=== PATIENT | female | born 1990 | race Hispanic/Latino ===

== ENCOUNTER 2024-06-01 20:03 | Emergency (ER) | payer OTHER ==
[2024-06-01] MEDS ORDERED: DiphenhydrAMINE HCL 50 MG/ML SDV IV ONE (20:15)
[2024-06-01] MEDS ORDERED: SODIUM CHLORIDE 0.9% 1,000 ML IV ONE (20:15)
[2024-06-01 20:19] VITALS: BP 132/74
[2024-06-01 20:30] VITALS: BP 144/84
[2024-06-01 20:36] LABS: BASO% 0.8 % (0-3); EOS% 2.2 % (0-8); HEMATOCRIT 33.7 % (37.0-47.0); HEMOGLOBIN 11.2 g/dl (12.0-16.0); IMMATURE GRANULOCYTES 0.5 % (0.0-5.0); LYMPH% 34.2 % (15-41); MEAN CELL VOLUME 87.8 fL CALC (80.0-100.0); MEAN CORPUSCULAR HGB 29.2 pG CALC (26.0-32.0); MEAN CORPUSCULAR HGB CONC 33.2 g/dL CAL (32.0-36.0); MONO% 5.8 % (2-13); NEUT# 4.41 thou/uL (2.00-7.15); NEUT% 56.5 % (42-76); RED BLOOD COUNT 3.84 mill/uL (4.20-5.60); RED CELL DISTRI WIDTH 13.2 % (11.5-15.5)
[2024-06-01 20:49] LABS: ALBUMIN 4.3 g/dL (3.2-5.0); ALKALINE PHOSPHATASE 65 u/l (38-126); ANION GAP 9 (6-22 (CALC)); BILIRUBIN, TOTAL 0.3 mg/dL (0.02-1.3); BUN 16 mg/dL (7-17); BUN/CREATININE RATIO 25 (12-20 (CALC)); CARBON DIOXIDE 24 mmol/l (22-30); CHLORIDE 110 mmol/l (95-108); CPK 78 u/l (30-135); CREATININE 0.6 mg/dL (0.5-1.0); ESTIMATED GFR 121 ML/MIN (>=90 (CALC)); MAGNESIUM 1.9 mg/dL (1.6-2.3); POTASSIUM 3.6 mmol/l (3.5-5.1); SGOT/AST 19 u/l (14-36); SODIUM 140 mmol/l (137-146); TOTAL PROTEIN 7.2 g/dL (6.3-8.2)
[2024-06-01 20:51] VITALS: BP 121/84
[2024-06-01 21:00] VITALS: BP 141/102
[2024-06-01] MEDS ORDERED: LACTATED RINGER'S 1,000 ML IV ONE (21:10)
[2024-06-01 21:12] LABS: URINE BILIRUBIN - DIPSTICK Negative (NEGATIVE); URINE BLOOD DIPSTICK Moderate (NEGATIVE); URINE GLUCOSE - DIPSTICK Negative (NEGATIVE); URINE KETONE Negative (NEGATIVE); URINE LEUK ESTERASE Negative (NEGATIVE); URINE NITRITE - DIPSTICK Negative (Negative); URINE PROTEIN - DIPSTICK Negative (NEG-TRACE); URINE SPECIFIC GRAVITY 1.015; URINE UROBILINOGEN - DIPSTICK 0.2 E.U./dL (0.2)
[2024-06-01 21:14] LABS: URINE COLOR Yellow
[2024-06-01 21:18] LABS: URINE BACTERIA MANY hpf; URINE SQUAMOUS EPITHELIAL CELL FEW EPI/hpf (0-FEW)
[2024-06-01 22:44] VITALS: BP 141/102
== END 2024-06-01 22:45 | disposition home or self-care (01) | DRG 923 ==
LOC: ED 20:03
PROVIDERS: Family Medicine
DX: T67.5XXA Heat exhaustion, unspecified, initial encounter (principal); T67.1XXA Heat syncope, initial encounter; I10 Essential (primary) hypertension; X30.XXXA Exposure to excessive natural heat, initial encounter; Y92.73 Farm field as the place of occurrence of the external cause; Y99.0 Civilian activity done for income or pay